=== PATIENT | female | born 1985 | race Caucasian/White ===

== ENCOUNTER 2018-04-19 10:42 | Observation (INO) | payer OTHER ==
[~2018-04-19] VITALS: Ht 154 cm; Wt 61.7 kg
[2018-04-19] MEDS ORDERED: PREN1TAB80 PO (11:17)
[2018-04-19] MEDS ORDERED: FERR-89 PO (11:17)
[2018-04-19] MEDS ORDERED: CALC-877 PO (11:17)
[2018-04-19 11:18] VITALS: BP 113/67
[2018-04-19 11:33] LABS: GLUCOMETER DEV NAME(LOC) 4S 8; GLUCOSE,POINT OF CARE 91 MG/DL (70-110)
[2018-04-19] MEDS ORDERED: NIFEdipine 10 MG CAPSULE PO ONE ×2 (12:00→14:15)
[2018-04-19] MEDS ORDERED: BETAMETHASONE SOLUSPAN 6 MG/ML 5 ML VIAL IM ONE (14:15)
[2018-04-19] MEDS ORDERED: MAGNESIUM SULFATE 500 ML IV SCH (15:15)
[2018-04-19] MEDS ORDERED: MAGNESIUM SULFATE 4 GM/WATER 100 ML IV ONE (15:15)
[2018-04-19] MEDS ORDERED: CALCIUM GLUCONATE 100 MG/ML 10 ML IVP PRN (15:15)
[2018-04-19] MEDS ORDERED: AMPICILLIN SODIUM 2 GM/NS 100 ML IV ONE (15:15)
[2018-04-19] MEDS: RINGERS SOLUTION,LACTATED 1,000 ML IV SCH (15:50)
[2018-04-19] MEDS: AMPICILLIN SODIUM 1 GM/NS 50 ML IV SCH ×2 (18:09→22:22)
[2018-04-20] MEDS ORDERED: BETAMETHASONE SOLUSPAN 6 MG/ML 5 ML VIAL IM ONE (02:40)
[2018-04-20] MEDS: AMPICILLIN SODIUM 1 GM/NS 50 ML IV SCH ×2 (02:46→07:01)
[2018-04-20] MEDS: RINGERS SOLUTION,LACTATED 1,000 ML IV SCH (04:00)
[2018-04-20] MEDS ORDERED: BUPIVACAINE HCL/PF 0.25% 10 ML VIAL ONE (09:26)
== END 2018-04-20 09:40 | disposition home or self-care (01) ==
LOC: 4S 10:42
PROVIDERS: ADMIT Obstetrics & Gynecology; ATTEND Obstetrics & Gynecology
DX: O62.9 Abnormality of forces of labor, unspecified (principal); O24.410 Gestational diabetes mellitus in pregnancy, diet controlled; Z3A.35 35 weeks gestation of pregnancy
CPT/HCPCS: 36415; 59025; 82962; 83735; 96361; 96365; 96366 ×2; 96368; 96372 ×2; G0378 ×2; J0290 ×3; J0702 ×2; J3475 ×2; J3490; J7120 ×2; 96360

== ENCOUNTER 2018-05-06 20:06 | Inpatient (IN) | payer OTHER ==
[~2018-05-06 20:06] MED LIST: CALC-877 PO; FERR-89 PO; PREN1TAB80 PO
[2018-05-06] MEDS ORDERED: RINGERS SOLUTION,LACTATED 1,000 ML IV ONE (20:11)
[2018-05-06] MEDS ORDERED: OXYTOCIN 30 UNITS/LACT RINGERS 500 ML IV ONE (20:17)
[2018-05-06] MEDS ORDERED: RINGERS SOLUTION,LACTATED 1,000 ML IV PRN (20:17)
[2018-05-06] MEDS ORDERED: RINGERS SOLUTION,LACTATED 1,000 ML IV SCH (20:17)
[2018-05-06] MEDS ORDERED: LIDOCAINE HCL/PF 1% 30 ML VIAL INJ PRN (20:30)
[2018-05-06] MEDS ORDERED: METHYLERGONOVINE MALEATE 0.2 MG/ML VIAL IM PRN (20:30)
[2018-05-06] MEDS ORDERED: METOCLOPRAMIDE HCL 5 MG/ML 2 ML VIAL IVP PRN (20:30)
[2018-05-06] MEDS ORDERED: CITRIC ACID/SODIUM CITRATE 30 ML SOLUTION UDCUP PO PRN (20:30)
[2018-05-06 20:44] LABS: BASOPHILS % (AUTO) 1.1 % (0.0-2.0); EOSINOPHILS % (AUTO) 0.3 % (1.0-6.0); HEMATOCRIT 38.1 % (36-46); HEMOGLOBIN 12.9 g/dL (12.0-16.0); LYMPHOCYTES # (AUTO) 3.4 K/uL (1.0-4.8); LYMPHOCYTES % (AUTO) 34.2 % (22.0-44.0); MEAN CORPUSCULAR HEMOGLOBIN 30.8 pg (26.0-34.0); MEAN CORPUSCULAR HGB CONC 33.9 G/dL (31.0-37.0); MEAN CORPUSCULAR VOLUME 91 fL (80-100); MONOCYTES # (AUTO) 0.8 K/uL (0.1-1.0); MONOCYTES % (AUTO) 8.1 % (2.0-9.0); NEUTROPHILS # (AUTO) 5.6 K/uL (1.8-7.7); NEUTROPHILS % (AUTO) 56.3 % (40.0-70.0); PLATELET COUNT (AUTO)-OB 165 K/uL (150-450); RED BLOOD CELL COUNT(AUTO) 4.21 MIL/uL (4.00-5.20); RED CELL DISTRIBUTION WIDTH 14.2 % (11.5-14.5)
[2018-05-06] MEDS ORDERED: LANOLIN 7 GM OINTMENT TP PRN (21:00)
[2018-05-06] MEDS ORDERED: ACETAMINOPHEN/CODEINE 300-30 MG TABLET PO PRN ×2 (21:00)
[2018-05-06] MEDS ORDERED: GLYCERIN/WITCH HAZEL LEAF 40 PADS JAR TP PRN (21:00)
[2018-05-06] MEDS ORDERED: BENZOCAINE 20%/MENTHOL 56 GM SPRAY CANISTER TP PRN (21:00)
[2018-05-06] MEDS: MAGNESIUM HYDROXIDE SUSPENSION 30 ML UDCUP PO SCH (22:25)
[2018-05-06] MEDS: IBUPROFEN 800 MG TABLET PO SCH (22:25)
[2018-05-07] MEDS ORDERED: OXYGEN THERAPY IH SCH (08:00)
[2018-05-07] MEDS: IBUPROFEN 800 MG TABLET PO SCH ×3 (08:30→22:10)
[2018-05-07] MEDS: MAGNESIUM HYDROXIDE SUSPENSION 30 ML UDCUP PO SCH ×2 (08:30→22:10)
[2018-05-08] MEDS: IBUPROFEN 800 MG TABLET PO SCH ×2 (04:12→10:19)
[2018-05-08 09:28] LABS: BASOPHILS % (AUTO) 0.7 % (0.0-2.0); EOSINOPHILS % (AUTO) 0.5 % (1.0-6.0); HEMATOCRIT 36.7 % (36-46); HEMOGLOBIN 12.5 g/dL (12.0-16.0); LYMPHOCYTES % (AUTO) 19.8 % (22.0-44.0); MEAN CORPUSCULAR HEMOGLOBIN 30.5 pg (26.0-34.0); MEAN CORPUSCULAR HGB CONC 34.2 G/dL (31.0-37.0); MEAN CORPUSCULAR VOLUME 89 fL (80-100); MONOCYTES # (AUTO) 0.5 K/uL (0.1-1.0); MONOCYTES % (AUTO) 4.5 % (2.0-9.0); NEUTROPHILS # (AUTO) 7.7 K/uL (1.8-7.7); NEUTROPHILS % (AUTO) 74.5 % (40.0-70.0); PLATELET COUNT (AUTO)-OB 162 K/uL (150-450); RED BLOOD CELL COUNT(AUTO) 4.12 MIL/uL (4.00-5.20); RED CELL DISTRIBUTION WIDTH 14.3 % (11.5-14.5)
[2018-05-08] MEDS ORDERED: IBUP-2070 PO (09:49)
== END 2018-05-08 12:45 | disposition home or self-care (01) | DRG 775 ==
LOC: 4S 20:06 → PREOBSVTOIN 05-21 20:04
PROVIDERS: ADMIT Obstetrics & Gynecology; ATTEND Obstetrics & Gynecology
PROC: 10E0XZZ Delivery of Products of Conception, External Approach (ICD-10-PCS; principal; 2018-05-06)
PROC: 0KQM0ZZ Repair Perineum Muscle, Open Approach (ICD-10-PCS; 2018-05-06)
DX: O77.0 Labor and delivery complicated by meconium in amniotic fluid (principal); O70.1 Second degree perineal laceration during delivery; Z37.0 Single live birth; Z3A.38 38 weeks gestation of pregnancy
CPT/HCPCS: 86850; 86900; 86901; J7120